=== PATIENT | male | born 1940 | race Asian ===

== ENCOUNTER 2020-02-15 12:30 | Outpatient (CLI) | payer MEDICARE, OTHER | END 2020-02-15 23:59 | disposition home health service (06) | LOC: WOU 12:30 | PROVIDERS: ATTEND Podiatrist Foot & Ankle Surgery | DX: L60.0 Ingrowing nail (principal); M79.672 Pain in left foot; M79.671 Pain in right foot; M20.42 Other hammer toe(s) (acquired), left foot; M20.41 Other hammer toe(s) (acquired), right foot; R26.2 Difficulty in walking, not elsewhere classified; Z79.01 Long term (current) use of anticoagulants; I69.354 Hemiplegia and hemiparesis following cerebral infarction affecting left non-dominant side; Z87.891 Personal history of nicotine dependence | CPT/HCPCS: G0463 ==

== ENCOUNTER 2020-03-20 10:01 | Outpatient (CLI) | payer MEDICARE, OTHER ==
[2020-03-20 12:12] LABS: ALBUMIN 3.9 g/dL (3.4-5.0); BILIRUBIN,TOTAL 0.8 mg/dL (0.2-1.0); CALCIUM, SERUM 9.3 mg/dL (8.5-10.1); PHOSPHORUS 3.8 mg/dL (2.5-4.9); POTASSIUM 3.7 mmol/L (3.5-5.1)
[2020-03-20 12:18] LABS: BASOPHILS % (AUTO) 0.6 % (0.0-2.0); EOSINOPHILS % (AUTO) 2.1 % (0.0-6.0); HEMATOCRIT 45 % (39-51); HEMOGLOBIN 15.2 g/dL (13.5-17.5); LYMPHOCYTES # (AUTO) 1.6 /CMM (0.8-4.8); LYMPHOCYTES % (AUTO) 25.3 % (20.0-44.0); MEAN CORPUSCULAR HGB CONC 34 g/dl (31.0-36.0); MEAN CORPUSCULAR VOLUME 94 fL (80-96); MONOCYTES # (AUTO) 0.5 /CMM (0.1-1.30); MONOCYTES % (AUTO) 7.6 % (2.0-12.0); NEUTROPHILS % (AUTO) 64.4 % (43.0-81.0); PLATELET COUNT (AUTO) 162 /CMM (150-450); RED BLOOD CELL COUNT(AUTO) 4.76 MIL/uL (4.5-6.0); WHITE BLOOD COUNT (AUTO) 6.2 K/uL (4.3-11.0)
[2020-03-20 12:23] LABS: PROSTATE SPECIFIC ANTIGEN SCR 1.02 ng/mL (0.00-4.00); THYROID STIMULATING HORMONE 3.338 uIU/mL (0.358-3.74)
[2020-03-20 14:47] LABS: APPEARANCE,URINE CLEAR (CLEAR); BILIRUBIN,URINE NEGATIVE (NEGATIVE); BLOOD, URINE TRACE-INTA Ery/uL (NEGATIVE); COLOR,URINE YELLOW (YELLOW); LEUKOCYTE ESTERASE ,URINE NEGATIVE (NEGATIVE); NITRITE, URINE NEGATIVE (NEGATIVE); PH,URINE 5.5 (5.0-8.0); PROTEIN,URINE NEGATIVE (NEGATIVE); UGLUCOSE NEGATIVE (NEGATIVE); UROBILINOGEN,URINE 0.2 EU/dL (0.2)
[2020-03-20 15:13] LABS: BACTERIA,URINE None seen /HPF (None Seen); RBC,URINE 0-2 /HPF (0-2); SQUAMOUS EPITHELIAL CELL,UR None Seen /HPF (None Seen); WBC,URINE 0-2 /HPF (0-3)
[2020-03-20 15:14] LABS: URINE AMORPHOUS URATE Few /HPF (None Seen)
== END 2020-03-20 23:59 | disposition home or self-care (01) ==
LOC: MSC 10:01
PROVIDERS: ATTEND Internal Medicine
DX: K59.00 Constipation, unspecified (principal); R63.4 Abnormal weight loss; Z68.26 Body mass index [BMI] 26.0-26.9, adult; I10 Essential (primary) hypertension; I48.91 Unspecified atrial fibrillation; Z86.73 Personal history of transient ischemic attack (TIA), and cerebral infarction without residual deficits; Z79.01 Long term (current) use of anticoagulants; Z79.899 Other long term (current) drug therapy
CPT/HCPCS: 36415; 80053; 81001; 82607; 83735; 84100; 84153; 84443; 85025; G0463; 81000-TC

== ENCOUNTER 2021-06-03 09:12 | Outpatient (CLI) | payer MEDICARE, OTHER ==
[2021-06-03 11:17] LABS: BASOPHILS % (AUTO) 0.6 % (0.0-2.0); EOSINOPHILS % (AUTO) 2.3 % (0.0-6.0); HEMATOCRIT 41 % (39-51); HEMOGLOBIN 13.8 g/dL (13.5-17.5); LYMPHOCYTES # (AUTO) 1.6 K/uL (0.8-4.8); LYMPHOCYTES % (AUTO) 28.5 % (20.0-44.0); MEAN CORPUSCULAR HGB CONC 34 g/dl (31.0-36.0); MEAN CORPUSCULAR VOLUME 96 fL (80-96); MONOCYTES # (AUTO) 0.5 K/uL (0.1-1.30); MONOCYTES % (AUTO) 8.8 % (2.0-12.0); NEUTROPHILS # (AUTO) 3.3 K/uL (1.8-8.9); NEUTROPHILS % (AUTO) 59.8 % (43.0-81.0); PLATELET COUNT (AUTO) 170 K/uL (150-450); RED BLOOD CELL COUNT(AUTO) 4.27 MIL/uL (4.5-6.0); WHITE BLOOD COUNT (AUTO) 5.5 K/uL (4.3-11.0)
[2021-06-03 11:37] LABS: BILIRUBIN,URINE NEGATIVE (NEGATIVE); COLOR,URINE YELLOW (YELLOW); LEUKOCYTE ESTERASE ,URINE NEGATIVE (NEGATIVE); NITRITE, URINE NEGATIVE (NEGATIVE); PROTEIN,URINE NEGATIVE (NEGATIVE); UGLUCOSE NEGATIVE (NEGATIVE); UROBILINOGEN,URINE 0.2 EU/dL (0.2)
[2021-06-03 11:59] LABS: URINE TOTAL PROTEIN 7.3 mg/dL (0-11.9)
[2021-06-03 12:19] LABS: CHOLESTEROL 91 mg/dL (<200); HDL CHOLESTEROL 26 mg/dL (40-60); LDL 52 mg/dL (0-99); PROSTATE SPECIFIC ANTIGEN SCR 1.07 ng/mL (0.00-4.00); THYROID STIMULATING HORMONE 2.592 uIU/mL (0.358-3.74); TRIGLYCERIDES 103 mg/dL (30-150)
[2021-06-03 12:25] LABS: ALANINE AMINOTRANSFERASE 25 U/L (12-78); ALBUMIN 3.5 g/dL (3.4-5.0); ALKALINE PHOSPHATASE 68 U/L (46-116); ASPARTATE AMINOTRANSFERASE 24 U/L (15-37); BILIRUBIN,TOTAL 0.7 mg/dL (0.2-1.0); CALCIUM, SERUM 8.3 mg/dL (8.5-10.1); CARBON DIOXIDE 27 mmol/L (21-32); CHLORIDE 102 mmol/L (98-107); CREATININE 0.9 mg/dL (0.6-1.3); GLUCOSE 90 mg/dL (74-106); MAGNESIUM 2.1 mg/dL (1.8-2.4); PHOSPHORUS 3.4 mg/dL (2.5-4.9); POTASSIUM 3.7 mmol/L (3.5-5.1); SODIUM SERUM 141 mmol/L (136-145); TOTAL PROTEIN, SERUM 7.8 g/dL (6.4-8.2); UREA NITROGEN, BLOOD 11 mg/dL (7-18)
[2021-06-03 12:34] LABS: C-REACTIVE PROTEIN < 0.2 mg/dL (0.0-0.9)
[2021-06-03 12:46] LABS: BACTERIA,URINE None seen /HPF (None Seen); SQUAMOUS EPITHELIAL CELL,UR None Seen /HPF (None Seen); WBC,URINE NONE SEEN /HPF (0-3)
== END 2021-06-03 23:59 | disposition home or self-care (01) ==
LOC: MSC 09:12
PROVIDERS: ATTEND Internal Medicine
DX: R41.81 Age-related cognitive decline (principal); N17.9 Acute kidney failure, unspecified; I10 Essential (primary) hypertension; K59.00 Constipation, unspecified; I48.91 Unspecified atrial fibrillation; Z79.01 Long term (current) use of anticoagulants; E78.5 Hyperlipidemia, unspecified; F39 Unspecified mood [affective] disorder; R63.4 Abnormal weight loss; I69.351 Hemiplegia and hemiparesis following cerebral infarction affecting right dominant side; Z79.899 Other long term (current) drug therapy; Z71.89 Other specified counseling
CPT/HCPCS: 36415; 80053; 80061; 81001; 82043; 82306; 82570; 82607; 82746; 83036; 83735; 84100; 84153; 84155; 84439; 84443; 85025; 85652; 86140; G0463

== ENCOUNTER 2021-06-11 15:00 | Outpatient (CLI) | payer MEDICARE, OTHER | END 2021-06-11 23:59 | disposition home or self-care (01) | LOC: MSC 15:00 | PROVIDERS: ATTEND Internal Medicine | DX: Z51.89 Encounter for other specified aftercare (principal); R41.81 Age-related cognitive decline; I10 Essential (primary) hypertension; K59.00 Constipation, unspecified; I48.91 Unspecified atrial fibrillation; Z79.01 Long term (current) use of anticoagulants; E78.5 Hyperlipidemia, unspecified; F39 Unspecified mood [affective] disorder; R63.4 Abnormal weight loss; I69.351 Hemiplegia and hemiparesis following cerebral infarction affecting right dominant side; Z71.89 Other specified counseling; Z79.899 Other long term (current) drug therapy ==

== ENCOUNTER → 2021-10-24 | Outpatient (CLI) | payer MEDICARE, OTHER | END | disposition home or self-care (01) | LOC: MSC 12:00 | PROVIDERS: ATTEND Internal Medicine | DX: Z51.89 Encounter for other specified aftercare (principal); Z86.73 Personal history of transient ischemic attack (TIA), and cerebral infarction without residual deficits; Z79.01 Long term (current) use of anticoagulants; R41.81 Age-related cognitive decline; I10 Essential (primary) hypertension; K59.00 Constipation, unspecified; I48.91 Unspecified atrial fibrillation; E78.5 Hyperlipidemia, unspecified; F39 Unspecified mood [affective] disorder; Z71.89 Other specified counseling; R63.4 Abnormal weight loss ==

== ENCOUNTER → 2021-12-01 | Outpatient (CLI) | payer MEDICARE, OTHER | END | disposition home or self-care (01) | LOC: MSC 13:00 | PROVIDERS: ATTEND Internal Medicine | DX: R06.02 Shortness of breath (principal); Z87.01 Personal history of pneumonia (recurrent); Z86.73 Personal history of transient ischemic attack (TIA), and cerebral infarction without residual deficits; Z79.01 Long term (current) use of anticoagulants; R41.81 Age-related cognitive decline; I10 Essential (primary) hypertension; K59.00 Constipation, unspecified; I48.91 Unspecified atrial fibrillation; E78.5 Hyperlipidemia, unspecified; F39 Unspecified mood [affective] disorder; Z71.89 Other specified counseling; R63.4 Abnormal weight loss ==

== ENCOUNTER → 2021-12-05 | Outpatient (CLI) | payer MEDICARE, OTHER | END | disposition home or self-care (01) | LOC: MSC 14:30 | PROVIDERS: ATTEND Internal Medicine | DX: J18.9 Pneumonia, unspecified organism (principal); Z86.73 Personal history of transient ischemic attack (TIA), and cerebral infarction without residual deficits; Z79.01 Long term (current) use of anticoagulants; R41.81 Age-related cognitive decline; I10 Essential (primary) hypertension; K59.00 Constipation, unspecified; I48.91 Unspecified atrial fibrillation; E78.5 Hyperlipidemia, unspecified; F39 Unspecified mood [affective] disorder; Z71.89 Other specified counseling; R63.4 Abnormal weight loss ==

== ENCOUNTER → 2022-01-08 | Outpatient (CLI) | payer MEDICARE, OTHER | END | disposition home or self-care (01) | LOC: MSC 10:30 | PROVIDERS: ATTEND Internal Medicine | DX: J18.9 Pneumonia, unspecified organism (principal); Z99.81 Dependence on supplemental oxygen; Z86.73 Personal history of transient ischemic attack (TIA), and cerebral infarction without residual deficits; Z79.01 Long term (current) use of anticoagulants; R41.81 Age-related cognitive decline; I10 Essential (primary) hypertension; K59.00 Constipation, unspecified; I48.91 Unspecified atrial fibrillation; E78.5 Hyperlipidemia, unspecified; F39 Unspecified mood [affective] disorder; R63.4 Abnormal weight loss ==

== ENCOUNTER 2022-03-11 14:00 | Outpatient (CLI) | payer MEDICARE, OTHER | END 2022-03-11 23:59 | disposition home or self-care (01) | LOC: MSC 14:00 | PROVIDERS: ATTEND Internal Medicine | DX: R41.81 Age-related cognitive decline (principal); Z87.01 Personal history of pneumonia (recurrent); I48.91 Unspecified atrial fibrillation; Z86.73 Personal history of transient ischemic attack (TIA), and cerebral infarction without residual deficits; Z79.01 Long term (current) use of anticoagulants; I10 Essential (primary) hypertension; K59.00 Constipation, unspecified; E78.5 Hyperlipidemia, unspecified; F39 Unspecified mood [affective] disorder; R63.4 Abnormal weight loss; Z71.89 Other specified counseling ==

== ENCOUNTER 2022-03-13 09:39 | Outpatient (CLI) | payer MEDICARE, OTHER | END 2022-03-13 23:59 | disposition home or self-care (01) | LOC: CT 09:39 | PROVIDERS: ATTEND Internal Medicine | DX: I63.81 Other cerebral infarction due to occlusion or stenosis of small artery (principal); G93.89 Other specified disorders of brain; I65.29 Occlusion and stenosis of unspecified carotid artery; I67.2 Cerebral atherosclerosis; R41.3 Other amnesia; R41.0 Disorientation, unspecified | CPT/HCPCS: 70450-TC ==

== ENCOUNTER → 2022-03-18 | Outpatient (CLI) | payer MEDICARE, OTHER | END | disposition home or self-care (01) | LOC: MSC 14:00 | PROVIDERS: ATTEND Internal Medicine | DX: R41.81 Age-related cognitive decline (principal); Z86.73 Personal history of transient ischemic attack (TIA), and cerebral infarction without residual deficits; Z79.01 Long term (current) use of anticoagulants; I48.91 Unspecified atrial fibrillation; Z87.01 Personal history of pneumonia (recurrent); I10 Essential (primary) hypertension; K59.00 Constipation, unspecified; E78.5 Hyperlipidemia, unspecified; F39 Unspecified mood [affective] disorder; R63.4 Abnormal weight loss; Z71.89 Other specified counseling ==

== ENCOUNTER 2022-03-26 10:00 | Outpatient (CLI) | payer MEDICARE, OTHER | END 2022-03-26 23:59 | disposition home or self-care (01) | LOC: MSC 10:00 | PROVIDERS: ATTEND Internal Medicine | DX: R41.81 Age-related cognitive decline (principal); F39 Unspecified mood [affective] disorder; I10 Essential (primary) hypertension; I48.91 Unspecified atrial fibrillation; Z79.01 Long term (current) use of anticoagulants; K59.00 Constipation, unspecified; E78.5 Hyperlipidemia, unspecified; R63.4 Abnormal weight loss; Z87.01 Personal history of pneumonia (recurrent); Z86.73 Personal history of transient ischemic attack (TIA), and cerebral infarction without residual deficits; Z71.89 Other specified counseling ==

== ENCOUNTER 2022-04-01 14:00 | Outpatient (CLI) | payer MEDICARE, OTHER | END 2022-04-01 23:59 | disposition home or self-care (01) | LOC: MSC 14:00 | PROVIDERS: ATTEND Internal Medicine | DX: R35.0 Frequency of micturition (principal); R41.81 Age-related cognitive decline; F39 Unspecified mood [affective] disorder; I10 Essential (primary) hypertension; I48.91 Unspecified atrial fibrillation; Z79.01 Long term (current) use of anticoagulants; K59.00 Constipation, unspecified; E78.5 Hyperlipidemia, unspecified; R63.4 Abnormal weight loss; Z87.01 Personal history of pneumonia (recurrent); Z86.73 Personal history of transient ischemic attack (TIA), and cerebral infarction without residual deficits; Z71.89 Other specified counseling ==

== ENCOUNTER → 2022-05-29 | Outpatient (CLI) | payer MEDICARE, OTHER | END | disposition home or self-care (01) | LOC: MSC 14:30 | PROVIDERS: ATTEND Internal Medicine | DX: R53.83 Other fatigue (principal); R35.0 Frequency of micturition; R41.81 Age-related cognitive decline; F39 Unspecified mood [affective] disorder; I10 Essential (primary) hypertension; I48.91 Unspecified atrial fibrillation; Z79.01 Long term (current) use of anticoagulants; K59.00 Constipation, unspecified; E78.5 Hyperlipidemia, unspecified; R63.4 Abnormal weight loss; Z71.89 Other specified counseling; Z87.01 Personal history of pneumonia (recurrent); Z86.73 Personal history of transient ischemic attack (TIA), and cerebral infarction without residual deficits ==

== ENCOUNTER → 2022-06-03 | Outpatient (CLI) | payer MEDICARE, OTHER | END | disposition home or self-care (01) | LOC: MSC 15:30 | PROVIDERS: ATTEND Internal Medicine | DX: Z09 Encounter for follow-up examination after completed treatment for conditions other than malignant neoplasm (principal); R35.0 Frequency of micturition; R41.81 Age-related cognitive decline; F39 Unspecified mood [affective] disorder; I10 Essential (primary) hypertension; I48.91 Unspecified atrial fibrillation; Z79.01 Long term (current) use of anticoagulants; K59.00 Constipation, unspecified; E78.5 Hyperlipidemia, unspecified; R63.4 Abnormal weight loss; Z71.89 Other specified counseling; Z87.01 Personal history of pneumonia (recurrent); Z86.73 Personal history of transient ischemic attack (TIA), and cerebral infarction without residual deficits ==

== ENCOUNTER 2022-08-18 11:30 | Outpatient (CLI) | payer MEDICARE, OTHER | END 2022-08-18 23:59 | disposition home or self-care (01) | LOC: MSC 11:30 | PROVIDERS: ATTEND Internal Medicine | DX: R63.4 Abnormal weight loss (principal); R53.83 Other fatigue; R35.0 Frequency of micturition; R41.81 Age-related cognitive decline; F39 Unspecified mood [affective] disorder; I10 Essential (primary) hypertension; I48.91 Unspecified atrial fibrillation; Z79.01 Long term (current) use of anticoagulants; K59.00 Constipation, unspecified; E78.5 Hyperlipidemia, unspecified; Z87.01 Personal history of pneumonia (recurrent); Z86.73 Personal history of transient ischemic attack (TIA), and cerebral infarction without residual deficits ==

== ENCOUNTER → 2022-08-20 | Outpatient (CLI) | payer MEDICARE, OTHER | END | disposition home or self-care (01) | LOC: MSC 11:15 | PROVIDERS: ATTEND Internal Medicine | DX: Z09 Encounter for follow-up examination after completed treatment for conditions other than malignant neoplasm (principal); R53.83 Other fatigue; R35.0 Frequency of micturition; R41.81 Age-related cognitive decline; F39 Unspecified mood [affective] disorder; I10 Essential (primary) hypertension; I48.91 Unspecified atrial fibrillation; Z79.01 Long term (current) use of anticoagulants; K59.00 Constipation, unspecified; E78.5 Hyperlipidemia, unspecified; Z87.01 Personal history of pneumonia (recurrent); Z86.73 Personal history of transient ischemic attack (TIA), and cerebral infarction without residual deficits ==

== ENCOUNTER 2022-09-09 14:00 | Outpatient (CLI) | payer MEDICARE, OTHER | END 2022-09-09 23:59 | disposition home or self-care (01) | LOC: MSC 14:00 | PROVIDERS: ATTEND Internal Medicine | DX: R53.83 Other fatigue (principal); E55.9 Vitamin D deficiency, unspecified; R35.0 Frequency of micturition; R41.81 Age-related cognitive decline; F39 Unspecified mood [affective] disorder; I10 Essential (primary) hypertension; I48.91 Unspecified atrial fibrillation; Z79.01 Long term (current) use of anticoagulants; K59.00 Constipation, unspecified; E78.5 Hyperlipidemia, unspecified; Z87.01 Personal history of pneumonia (recurrent); Z86.73 Personal history of transient ischemic attack (TIA), and cerebral infarction without residual deficits; Z71.89 Other specified counseling ==

== ENCOUNTER → 2022-09-15 | Outpatient (CLI) | payer MEDICARE, OTHER | END | disposition home or self-care (01) | LOC: MSC 15:15 | PROVIDERS: ATTEND Internal Medicine | DX: U07.1 COVID-19 (principal); R53.83 Other fatigue; E55.9 Vitamin D deficiency, unspecified; R35.0 Frequency of micturition; R41.81 Age-related cognitive decline; F39 Unspecified mood [affective] disorder; I10 Essential (primary) hypertension; I48.91 Unspecified atrial fibrillation; Z79.01 Long term (current) use of anticoagulants; K59.00 Constipation, unspecified; E78.5 Hyperlipidemia, unspecified; Z87.01 Personal history of pneumonia (recurrent); Z86.73 Personal history of transient ischemic attack (TIA), and cerebral infarction without residual deficits; Z71.89 Other specified counseling ==

== ENCOUNTER → 2022-09-25 | Outpatient (CLI) | payer MEDICARE, OTHER | END | disposition home or self-care (01) | LOC: MSC 14:30 | PROVIDERS: ATTEND Internal Medicine | DX: U07.1 COVID-19 (principal); R53.83 Other fatigue; E55.9 Vitamin D deficiency, unspecified; R35.0 Frequency of micturition; R41.81 Age-related cognitive decline; F39 Unspecified mood [affective] disorder; I10 Essential (primary) hypertension; I48.91 Unspecified atrial fibrillation; Z79.01 Long term (current) use of anticoagulants; K59.00 Constipation, unspecified; E78.5 Hyperlipidemia, unspecified; Z87.01 Personal history of pneumonia (recurrent); Z86.73 Personal history of transient ischemic attack (TIA), and cerebral infarction without residual deficits; Z71.89 Other specified counseling ==

== ENCOUNTER → 2022-12-04 | Outpatient (CLI) | payer MEDICARE, OTHER | END | disposition home or self-care (01) | LOC: MSC 15:00 | PROVIDERS: ATTEND Internal Medicine | DX: R53.81 Other malaise (principal); R53.83 Other fatigue; U07.1 COVID-19; R41.81 Age-related cognitive decline; F39 Unspecified mood [affective] disorder; E55.9 Vitamin D deficiency, unspecified; R35.0 Frequency of micturition; I10 Essential (primary) hypertension; I48.91 Unspecified atrial fibrillation; Z86.73 Personal history of transient ischemic attack (TIA), and cerebral infarction without residual deficits; Z79.01 Long term (current) use of anticoagulants; K59.00 Constipation, unspecified; E78.5 Hyperlipidemia, unspecified; Z87.01 Personal history of pneumonia (recurrent); Z71.89 Other specified counseling ==